=== PATIENT | male | born 1945 | race Caucasian/White ===

== ENCOUNTER 2020-06-26 14:15 | Emergency (ER) | payer OTHER ==
[~2020-06-26] VITALS: Ht 182.9 cm; Wt 86.2 kg
[~2020-06-26 14:15] MED LIST: ALPRAZOLAM 0.50.5 M1; AZITHROMYCIN 2250 MG PO; METHOCARBAMOL750 MG PO; MUSCLE RELAXER; NORCO 10-325 T1 EACH PO; [UNRECOGNIZED DRUG - OTHER] PO
[2020-06-26] MEDS ORDERED: DOXEPIN 10 MG C10 M1 PO (15:24)
[2020-06-26 15:48] LABS: ABSOLUTE NEUTROPHILS 3.1 thou/uL (1.4-8.2); BASOPHILS 1.3 % (0.0-2.0); EOSINOPHILS 2.1 % (0.0-3.0); HEMATOCRIT 42.1 % (42.0-52.0); LYMPHOCYTES 33.7 % (24.0-44.0); MCH 31.8 pg (26.0-34.0); MCHC 33.3 g/dL (28.0-37.0); MCV 95.6 fL (80.0-100.0); MONOCYTES 6.4 % (1.0-8.0); PLATELET COUNT 170 thou/uL (150-400); POLYS 56.5 % (36.0-66.0); RBC 4.41 mil/uL (4.50-6.00); RDW 14.2 % (10.5-14.5); WBC 5.6 thou/uL (4.0-11.0)
--- NOTE | 2020-06-26 15:53 | EKG ---
[facility] [place] [address] ELECTROCARDIOGRAM REPORT Name: MARCIA RESENDEZ Room #: REG [facility]#: [id number] Admission: 06/26/20 Attend Phys: Discharge: Date of : 47 Report #: [id number] THIS REPORT FOR: cc: Gage Barakat MD, Steven E. MD Santiago, Patrick MD [facility] ~ THIS REPORT FOR: //name// [facility] ED Test Date: 2020-06-26 Test Time: 14:21:12 Pat Name: MARCIA RESENDEZ Department: Room: Gender: Field Support Technician: : 1945 Requested By: Kenton Clark Order Number: [id number] MD: Jhonathan Flores Measurements Intervals Commiskey Rate: 51 P: 90 CO: 261 QRS: -5 QRSD: 184 T: 20 QT: 471 QTc: 434 Interpretive Statements Sinus rhythm Prolonged CO interval Nonspecific intraventricular conduction delay Compared to ECG 10/04/2009 08:11:27 Intraventricular conduction delay now present Electronically Signed On 06-26-2020 15:53:33 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
[2020-06-26 16:00] LABS: ANION GAP 5 mmol/L (7-16); BUN 22 mg/dL (7-18); CALCIUM 8.8 mg/dL (8.5-10.1); CHLORIDE 107 mmol/L (98-107); CO2 28 mmol/L (21-32); CREATININE 1.3 mg/dL (0.7-1.3); GLUCOSE 103 mg/dL (74-106); POTASSIUM 4.4 mmol/L (3.5-5.1); SODIUM 140 mmol/L (136-145)
[2020-06-26 16:07] LABS: TROPONIN-I <0.06 ng/mL (<0.06)
[2020-06-26 17:04] VITALS: BP 132/76
== END 2020-06-26 17:11 | disposition home or self-care (01) ==
LOC: ER 14:15
PROVIDERS: Emergency Medicine
DX: R07.9 Chest pain, unspecified (principal); Z79.899 Other long term (current) drug therapy